=== PATIENT | female | born 1940 | race Two or more races ===

== ENCOUNTER 2023-07-18 08:51 | Outpatient (CLI) | payer OTHER ==
[~2023-07-18 08:51] MED LIST: AVALIDE 300-251 TAB PO; ECOTRIN81 MG PO; FLECTOR30 EA TP; GLIMEPIRIDE 4 MG; LEVEMIR100 U/ML SQ; NTG; PLAVIX75 MG PO; PRAVACHOL80 MG PO; PROVENTIL; SINGULAIR10 MG PO; TENCON TABLET1 TAB PO; VERAPAMIL 240 MG; ZYRTEC10 MG PO; [UNRECOGNIZED DRUG - OTHER] MC
== END 2023-07-18 08:58 | disposition home or self-care (01) ==
LOC: RAD 08:51
PROVIDERS: ATTEND Pain Medicine Interventional Pain Medicine
DX: M41.9 Scoliosis, unspecified (principal)